=== PATIENT | female | born 1985 | race Caucasian/White ===

== ENCOUNTER → 2017-07-17 17:59 | Outpatient (CLI) | payer OTHER | END | disposition home or self-care (01) | LOC: D.MAMMO 09:30 | DX: N63.24 Unspecified lump in the left breast, lower inner quadrant (principal) ==

== ENCOUNTER → 2017-08-31 15:46 | Outpatient (CLI) | payer OTHER | END | disposition home or self-care (01) | LOC: D.US 15:46 | DX: N92.6 Irregular menstruation, unspecified (principal) ==